=== PATIENT | female | born 1995 | race Caucasian/White ===

== ENCOUNTER 2020-05-13 14:56 | Outpatient (CLI) | payer OTHER, SELFPAY ==
[2020-05-13 15:28] LABS: Basophils Absolute Auto 0.1 K/mm3 (0.0-0.1); Basophils Percent Auto 0.7 % (0.2-1.2); Eosinophils Absolute Auto 0.1 K/mm3 (0-0.3); Eosinophils Percent Auto 1.4 % (0-4.4); Hemoglobin 11.7 g/dL (12.0-15.0); Immature Granulocyte Absolute 0.18 K/mm3 (0.00-0.031); Lymphocytes Absolute Auto 1.63 K/mm3 (0.9-3.2); Lymphocytes Percent Auto 18.1 % (18.3-44.2); Mean Corpuscular HGB Conc 33.4 g/dl (32-36); Mean Corpuscular Hemoglobin 30.5 pg (26-34); Mean Corpuscular Volume 91.1 fl (80-100); Mean Platelet Volume 10.7 fl (7.4-10.4); Monocytes Absolute Auto 0.7 K/mm3 (0.1-0.6); Monocytes Percent Auto 7.8 % (2.6-8.5); Neutrophils Absolute Auto 6.3 K/mm3 (1.3-6.7); Platelet Count Result 195 k/mm3 (150-375); Red Blood Count 3.84 M/mm3 (4.2-5.4); Red Cell Distribution Width 13.8 % (11.5-14.5)
[2020-05-13 16:56] LABS: HIV 1/2 Ab P24 Ag Result Negative (Negative)
[2020-05-14 07:13] LABS: Rapid Plasma Reagin Non-Reactive (NonReactive)
== END 2020-05-13 14:57 | disposition home or self-care (01) ==
PROVIDERS: PCP Family Medicine; Visit Provider Student in an Organized Health Care Education/Training Program
DX: Z34.03 Encounter for supervision of normal first pregnancy, third trimester (principal)
CPT/HCPCS: 36415; 85025; 86592; 86703; G0432

== ENCOUNTER 2020-05-15 09:25 | Inpatient (IN) | payer OTHER, SELFPAY ==
[2020-05-15] VITALS (98 sets, daily range): BP systolic 77–129; BP diastolic 47–99; PULSE 67–111; RESP 16; TEMP 36.6–36.9; O2SAT 96–100; BMI 35.2
[2020-05-15] MEDS: OXYTOCIN 30 UNITS/NS 500 ML 30 UNITS/500 ML BAG 6 UNITS IV CONT (10:41)
[2020-05-15] MEDS: LACTATED RINGERS 1,000 ML 125 ML IV CONT (10:42)
[2020-05-15] MEDS: AMPICILLIN 2 GM/NS 100 ML 2 GM/100 ML BAG IVPB (10:42)
[2020-05-15 10:55] LABS: Basophils Percent Auto 0.4 % (0.2-1.2); Eosinophils Absolute Auto 0.1 K/mm3 (0-0.3); Eosinophils Percent Auto 1.3 % (0-4.4); Hematocrit 33.8 % (37.0-47.0); Hemoglobin 11.3 g/dL (12.0-15.0); Immature Granulocyte Absolute 0.14 K/mm3 (0.00-0.031); Immature Granulocyte Percent A 1.6 % (0-0.5); Lymphocytes Absolute Auto 1.34 K/mm3 (0.9-3.2); Mean Corpuscular HGB Conc 33.4 g/dl (32-36); Mean Corpuscular Hemoglobin 29.9 pg (26-34); Mean Corpuscular Volume 89.4 fl (80-100); Mean Platelet Volume 10.9 fl (7.4-10.4); Monocytes Absolute Auto 0.8 K/mm3 (0.1-0.6); Monocytes Percent Auto 8.6 % (2.6-8.5); Neutrophils Absolute Auto 6.5 K/mm3 (1.3-6.7); Neutrophils Percent Auto 73.1 % (45.5-73.1); Platelet Count Result 181 k/mm3 (150-375); Red Blood Count 3.78 M/mm3 (4.2-5.4); Red Cell Distribution Width 13.6 % (11.5-14.5); White Blood Count 8.9 K/mm3 (4.5-10.0)
--- NOTE | 2020-05-15 11:18 | LDADM ---
This patient, Alexa Perez, was admitted to Labor/Delivery/Recovery 106 on 05/15/20 at 09:25. Plans for labor, pain management and were discussed with patient. Patient oriented to hospital policies and general routines including ID bracelet, bed and alarms, visiting hours, pain management, procedures, bathroom and other care routines, personal items, smoking policy, room service/diet and guest tray routines, security routines, call light, and visiting hours. Patient is encouraged to report perceived risks to care and to ask questions if she does not understand what she is told or what she should do. See OBIX for further documentation.
--- NOTE | 2020-05-15 13:58 | P.PNAN_ITS ---
Anes - Eval Pre Procedure Procedure: Labor Epidural Date/Time: 05/15/20 13:58 Pre Op Diagnosis: leaking Patient Data Age: 24 Gender: F Height: 1.68 m Weight: 99 kg Last Vital Signs Pulse 82 05/15/20 13:30 BP 111/62 05/15/20 13:30 Allergies Allergy/AdvReac Type Severity Reaction Status Date / Time No Known Allergies Allergy Verified 04/10/20 14:37 Home Medications Medication Instructions Recorded Confirmed Type docosahexaenoic acid 200 mg capsule mg PO 10/23/19 History cholecalciferol (vitamin D3) 25 25 mcg PO DAILY 12/20/19 History mcg (1,000 unit) capsule Laboratory Tests 05/15/20 05/15/20 05/15/20 10:49 10:49 10:49 WBC 8.9 K/mm3 K/mm3 (4.5-10.0) RBC 3.78 M/mm3 L M/mm3 (4.2-5.4) Hgb 11.3 g/dL L g/dL (12.0-15.0) Hct 33.8 % L % (37.0-47.0) MCV 89.4 fl fl (80-100) MCH 29.9 pg pg (26-34) MCHC 33.4 g/dl g/dl (32-36) RDW 13.6 % % (11.5-14.5) Plt Count 181 k/mm3 k/mm3 (150-375) MPV 10.9 fl H fl (7.4-10.4) Immature Gran % (Auto) 1.6 % H % (0-0.5) Neut % (Auto) 73.1 % % (45.5-73.1) Lymph % (Auto) 15.0 % L % (18.3-44.2) [place] % (Auto) 8.6 % H % (2.6-8.5) Eos % (Auto) 1.3 % % (0-4.4) Baso % (Auto) 0.4 % % (0.2-1.2) Lymph # (Auto) 1.34 K/mm3 K/mm3 (0.9-3.2) [place] # (Auto) 0.8 K/mm3 H K/mm3 (0.1-0.6) Eos # (Auto) 0.1 K/mm3 K/mm3 (0-0.3) Baso # (Auto) 0.0 K/mm3 K/mm3 (0.0-0.1) Abs Immat Gran (auto) 0.14 K/mm3 H K/mm3 (0.00-0.031) Absolute Neuts (auto) 6.5 K/mm3 K/mm3 (1.3-6.7) Absolute Nucleated RBC 0.0 K/mm3 K/mm3 (0.0-0.012) Nucleated RBC % 0.0 % % (0.0-0.2) RPR Pending Blood Type B Positive Antibody Screen Negative Patient hx anesthesia problems: none Family hx anesthesia problems: none PMFSH Family History Family History Grandparent Family history of malignant neoplasm of breast in first degree relative Social History Social History Smoking status: Never smoker Second hand tobacco smoke exposure: No Alcohol intake: current Substance use: never Gender identity (if verbalized by the patient): Female Spiritual care concerns: No Exam Day of Procedure 05/15/20 13:58 Patient weight: normal Heart: regular rate and rhythm Lungs: normal air movement Airway: Mallampati scale class II Neurological: alert and oriented
[2020-05-15 14:26] LABS: Rapid Plasma Reagin Non-Reactive (NonReactive)
[2020-05-15] MEDS: AMPICILLIN 1 GM/NS 50 ML 1 GM/50 ML BAG IVPB ×2 (14:33→18:39)
--- NOTE | 2020-05-15 14:43 | PM.IMHP ---
H&P: HPI History of Present Illness Chief complaint: leaking Narrative: Alexa Perez is a 24 year old female LMP 08/29/19 currently 37w1d with ELIZABETH 06/04/20 who presented to L&D with complaint of leakage of fluid. Pt reports steady trickle of fluid this morning as well as onset of sharp pain, possible contractions. She denies any vaginal bleeding and reports good movement. Upon arrival to L&D, patient was noted to be grossly ruptured. Decision made to admit pt to L&D. Review of Systems Review of Systems: All systems reviewed & are unremarkable except as noted in HPI and below Constitutional: Constitutional: Reports as per HPI, Reports no additional constitutional complaints, Denies chills, Denies fever(s), Denies headache(s) and Denies night sweats Eyes: Eyes: Reports as per HPI and Reports no additional eye complaints ENT: Reports system reviewed and no additional complaints, except as documented, Reports as per HPI, Reports Normal hearing present and Denies headache(s) Cardiovascular: Cardiovascular: Reports as per HPI, Reports no additional cardiovascular complaints, Denies chest pain and Denies dyspnea Respiratory: Respiratory: Reports as per HPI, Reports no additional respiratory complaints, Denies cough and Denies dyspnea Gastrointestinal: Gastrointestinal: Reports as per HPI, Reports no additional gastrointestinal complaints, Denies abdominal pain, Denies change in bowel habits, Denies change in stool character, Denies nausea and Denies vomiting Genitourinary: Genitourinary: Reports no additional female genitourinary complaints, Reports as per HPI, Denies abnormal vaginal bleeding, Denies genital lesions, Denies hot flashes, Denies dyspareunia, Denies pelvic pain, Denies sexual dysfunction, Denies urinary incontinence, Denies vaginal discharge, Denies vaginal dryness and Denies vaginal odor Musculoskeletal: Musculoskeletal: Reports no additional musculoskeletal complaints and Reports as per HPI Integumentary/Breasts: Skin/Breast: Reports system reviewed and no additional complaints, except as docu, Reports as per HPI, Denies breast pain and Denies nipple discharge Neurologic: Reports system reviewed and no additional complaints, except as documented, Reports as per HPI, Reports Normal hearing present and Denies headache(s) Psychiatric: Psychiatric: Reports no additional psychiatric complaints, Reports as per HPI, Denies anxiety and Denies depression Endocrine: Endocrine: Reports no additional endocrine complaints and Reports as per HPI Hematologic/Lymphatic: Hematologic/Lymphatic: Reports no additional hematologic/lymphatic complaints and Reports as per HPI Allergic/Immunologic: Allergic/Immunologic: Reports no additional allergic/immunologic complaints and Reports as per HPI [facility] Family History Family History Grandparent Family history of malignant neoplasm of breast in first degree relative Social History Social History Smoking status: Never smoker Second hand tobacco smoke exposure: No Alcohol intake: current Substance use: never Gender identity (if verbalized by the patient): Female Spiritual care concerns: No Meds Home Medications and Allergies Home Medications Medication Instructions Recorded Confirmed Type docosahexaenoic acid 200 mg capsule mg PO 10/23/19 History cholecalciferol (vitamin D3) 25 25 mcg PO DAILY 12/20/19 History mcg (1,000 unit) capsule Allergies Allergy/AdvReac Type Severity Reaction Status Date / Time No Known Allergies Allergy Verified 04/10/20 14:37 Vital Signs Vital Signs - 24 hr 05/15/20 10:00 05/15/20 10:15 05/15/20 10:31 Temperature Pulse Rate 90 93 91 Blood Pressure 115/80 116/84 77/54 L 05/15/20 10:45 05/15/20 11:00 05/15/20 11:15 Temperature 36.7 C Pulse Rate 83 83 83 Blood Pressure 99/68 L 114/67 113/70
[2020-05-15] MEDS: OXYTOCIN 30 UNITS/NS 500 ML 30 UNITS/500 ML BAG 125 UNITS IV CONT (21:29)
--- NOTE | 2020-05-15 21:29 | PM.OBPRVD ---
OB - Delivery Note Procedure Delivery date: 05/15/20 Procedure: The patient is a 24-year-old now G1 P 1001 who presented to labor and delivery on 05/15/2020 with complaints of leakage of fluid. Patient was noted to be grossly ruptured upon presentation to labor and delivery and was admitted. SROM occurred at 3:00 a.m. Initial cervical exam was 3/70/-3. Patient was not in labor at time presentation and decision made to begin induction of labor with Pitocin. Pitocin was started and slowly titrated throughout the morning and afternoon. Patient began making cervical change. She became increasingly uncomfortable and requested an epidural for pain management which was placed without difficulty. Patient continued to make progress and was noted to be fully dilated at 8:10 p.m. Patient was encouraged to push and found to be pushing well. She was prepped and draped for delivery. At 9:01 p.m., patient delivered head in JACKLYN presentation. A compound presentation was noted as an infant hand delivered alongside 's face. Occiput restituted to maternal right side. Infant head was delivered atraumatically without difficulty. With subsequent push, the 's neck, shoulders, and rest of body were also delivered without difficulty. 's nose and mouth were suctioned with bulb suction and the was placed on maternal abdomen. Care was assumed by awaiting nursing staff. Delayed cord clamping was performed for approximately 45 seconds. The cord was clamped and cut. A segment of cord was collected for cord gases. Cord blood was collected. The placenta was delivered spontaneously and intact. Uterine fundus was noted to be firm with massage. On inspection, bilateral labial lacerations were noted along with a superficial perineal laceration. These lacerations were repaired with 2-0 and 3-0 Vicryl in the usual fashion. Estimated blood loss for entire delivery was 256 cc. The infant was a live-born male infant, weighing 7 lb 5 oz, Apgars 9 and 9. Both mother and baby doing well and delivery. Of note, GBS status at time of admission was unknown and patient received 3 doses of antibiotics for GBS prophylaxis. events: Labor Induction and Premature Rupture of Membrane Induction method: per pitocin protocol Delivery monitor: external FHT Route of delivery: Laceration description: Labial (bilateral) Delivery repair: vicryl Specimen: Yes (cord blood and cord gases) Estimated blood loss (mL): 256 Anesthesia type: Epidural Disposition: floor Complications: No immediate complications Baby Date of : 05/15/20 Time of : 21:01 Weeks of gestation at delivery: 37 Infant gender: Male Weight (pounds): 7 Weight (ounces): 5 presentation: vertex position: Right Occiput Anterior Placenta delivery description: Spontaneous cord vessel description: 3 Vessels score one minute: 9 score five minutes: 9
[2020-05-15] MEDS: BENZOCAINE 20% AER SPR (*SP) 56 GM CAN 1 SPRAY TOPICAL (23:22)
[2020-05-15] MEDS: WITCH HAZEL 40 PADS 1 PAD TOPICAL (23:22)
[2020-05-16 05:59] LABS: Hematocrit 32.3 % (37.0-47.0); Hemoglobin 10.6 g/dL (12.0-15.0)
[2020-05-16 08:45] VITALS: BP 116/69; PULSE 86; RESP 18; TEMP 36.9; O2SAT 100
--- NOTE | 2020-05-16 09:01 | WPDANLDPN2 ---
Anes-Prog Note L&D Date/Time: 05/16/20 09:01 Comfortable throughout: labor and delivery Neuraxial method: epidural Epidural/Spinal procedure site: clean & non-tender Neuro status: Neuro function grossly intact. Cardiovascular status: normal Respiratory status: normal Airway patency: baseline Mental status: baseline Post-Op hydration status: normal Vital Signs: Last Vital Signs Temp 36.8 C 05/15/20 23:45 Pulse 79 05/15/20 23:45 Resp 16 05/15/20 23:45 BP 91/47 L 05/15/20 23:45 Pulse Ox 100 05/15/20 20:39 I/O: Intake & Output 05/15/20 05/16/20 05/16/20 23:59 07:59 15:59 Intake Total 1800 Output Total 98 Balance 1702 Post-procedural complaints: none Patient feedback: Patient satisfied with anesthetic care.
[2020-05-16] MEDS: IBUPROFEN 600 MG TABLET PO ×3 (09:21→22:25)
[2020-05-16] MEDS: DOCUSATE SODIUM 100 MG CAPSULE PO ×2 (09:21→15:41)
[2020-05-16] MEDS: MULTIVIT/MIN/PREN/FOL AC/IRON TABLET 1 TAB PO (09:21)
--- NOTE | 2020-05-16 12:18 | PM.OBPNVD ---
OB - PN: Subj Subjective Date/time seen: 05/16/20 12:18 Late entry. Pt seen at 8:15 a.m. Doing well. Reports mild vaginal soreness, alleviated with medication. Otherwise, denies any heavy vaginal bleeding. Ambulating and voiding without difficulty. OB - PN: Obj Data Labs CBC & Chem 7: 05/16/20 05:20 Labs: Laboratory Results - last 24 hr 05/15/20 05/15/20 05/16/20 10:49 10:49 05:20 Hgb 10.6 L Hct 32.3 L RPR Non-reactive Blood Type B Positive Antibody Screen Negative OB - PN A/P Assessment and Plan (1) Normal spontaneous vaginal delivery: Code(s): O80 - Encounter for full-term uncomplicated delivery Status: Acute Assessment and Plan: PPD#1 doing well continue routine care anticipate dc home tomorrow Time Spent With Patient Time: Total time spent is greater than 50% in coordination of care (as documented) at patient's floor/unit and/or counseling patient: Exam Const: General: comfortable and no acute distress GI: GI Palp: Yes Soft to palpation and No Tenderness to palpation present (GI) Other: fundus below umbilicus Extrem: Right lower extremity: no edema Left lower extremity: no edema Other: no calf tenderness
[2020-05-16] MEDS: BENZOCAINE 20% AER SPR (*SP) 56 GM CAN 1 SPRAY TOPICAL (15:40)
[2020-05-16] MEDS: WITCH HAZEL 40 PADS 1 PAD TOPICAL (15:40)
--- NOTE | 2020-05-16 15:55 | PC.NURSE ---
Mother called out for assist with feeding. Mother reports using the nipple shield for all feedings. Mother states most feedings will latch and has a few good draws and stop nursing and fall asleep. Mother will wake and get infant to suckle a few times. has had one feeding with a consistent suck for several minutes. Discussed nipple shield precautions and possible complications. Instructions given on application and cleaning of shield. Patient able to return demonstration on proper application of shield. Discussed the need to initiate pumping if continues to nurse with the shield. Patient verbalizes understanding. Reviewed feeding cues, frequencies, duration of feedings, feeding elimination flow sheet, and signs of adequate intake. Demonstrated stimulation techniques to wake for feeding. Several minutes to wake infant. Assisted with to breast. Reviewed positioning/alignment in cross cradle, holding breast in U hold and guided asymmetrical latch on. keeps tongue curled up and makes for difficult latch. Infant was able to latch correctly. has a few sucks within the 10-15 minute attempt. Mother reports this is typical of most infant feeding. Reviewed signs of a correct latch, the difference of effective nursing and ineffective feeding, suck swallow ratio. Nipple care reviewed. Instructed mother to call out for RN assistance if she is unable to latch for feeding or she has discomfort with nursing. Instructed feeding should be initiated three hours from start of last feeding or if feeding cues are noted before. Mother voiced understanding of information shared. Feeding options discussed, mother would like infant to be supplemented at this time. Mother instructed on paced feeding.
--- NOTE | 2020-05-16 16:30 | PC.NURSE ---
Mother wishes to use her home pump. Instructions given on breast pump care and usage, pumping schedule, nipple care, and collection and storage of breast milk. Encouraged [id number], breast massage and manual expression to stimulate supply. Assessed patient for correct flange size, placement and draw. Patient verbalizes and demonstrates understanding of instructions.
[2020-05-16 19:20] VITALS: BP 114/65; PULSE 88; RESP 16; TEMP 36.8
[2020-05-17] MEDS: IBUPROFEN 600 MG TABLET PO (05:45)
[2020-05-17 07:38] VITALS: BP 100/61; PULSE 67; RESP 16; TEMP 36.5
--- NOTE | 2020-05-17 09:32 | PM.OBPNVD ---
OB - PN: Subj Subjective Date/time seen: 05/17/20 09:32 Patient doing well. Reports mild vaginal soreness, alleviated with medication. Denies any headache, chest pain, SOB, N/V. Ambulating and voiding well. Denies heavy lochia. OB - PN: Obj Data Labs CBC & Chem 7: 05/16/20 05:20 OB - PN A/P Assessment and Plan (1) Normal spontaneous vaginal delivery: Code(s): O80 - Encounter for full-term uncomplicated delivery Status: Acute Assessment and Plan: doing well dc home in stable condition emergency precautions reviewed f/u in office in 4-6 weeks for visit Time Spent With Patient Time: Total time spent is greater than 50% in coordination of care (as documented) at patient's floor/unit and/or counseling patient: Exam Const: General: comfortable and no acute distress GI: GI Palp: Yes Soft to palpation and No Tenderness to palpation present (GI) Other: fundus below umbilicus Extrem: Right lower extremity: no edema Left lower extremity: no edema Other: no calf tenderness
--- NOTE | 2020-05-17 09:34 | PM.OBDSVD ---
DS: Admitting Diagnosis Admitting Diagnosis Admitting Diagnosis: Premature rupture of membranes, unspecified as to length of time between rupture and onset of labor, unspecified weeks of gestation OB - DS: Summary OB Procedures : None OB Procedures Intrapartum: Spontaneous Vag Delivery OB Procedures: : None Time Spent with Patient Time attestation: Total time spent providing and/or coordinating discharge services: Discharge Plan Discharge Attending physician on discharge: Alexa Langley Discharging Clinician: Alexa Langley Anticipated Discharge Date/Time: 05/17/20 09:34 Patient Disposition: Home, Self-Care Activity: as tolerated and pelvic rest Diet: regular Discharge Instructions: Call office ([phone]) to schedule a visit in 4-6 weeks. You may take Ibuprofen 600mg every 6 hours as needed for pain. Pain medication may make you constipated. It may be helpful to take an [id number] stool softener, such as Colace and/or Senokot, along with the pain medication to help lessen constipation. Call office or go to ED for pain not controlled with medication, headache, chest pain, shortness of breath, fever, chills, persistent nausea or vomiting, severe abdominal pain, heavy vaginal bleeding >2 pads/hour, foul vaginal discharge or odor, or problems with your breasts. Patient Instructions: Antibiotic Form Stand Alone Forms: General Discharge Information Follow-up/Referrals: Alexa Langley MD [Physician] - (4-6 weeks) Discharge Medications: Continued 28-800 mg-mcg Tablet See Rx Instructions .ROUTE .COMPLEX RF: 0 Discontinued cholecalciferol (vitamin D3) 25 mcg (1,000 unit) capsule 25 mcg PO DAILY RF: 0 Date of admission: 05/15/20 09:25 Primary Care Provider: Chao Wilcox Admitting Provider: Alexa Langley Attending physician on admission: Alexa Langley Condition: Stable
[2020-05-17] MEDS: TETANUS,DIPHTHERIA,AC PERTUSSIS ADULT (0.5 ML) BOOSTRIX IM (11:24)
[2020-05-17] MEDS: DOCUSATE SODIUM 100 MG CAPSULE PO (11:24)
[2020-05-17] MEDS: MULTIVIT/MIN/PREN/FOL AC/IRON TABLET 1 TAB PO (11:24)
[2020-05-19 09:28] VITALS: BP 137/72; PULSE 92; RESP 20; TEMP 36.8; O2SAT 100
== END 2020-05-17 15:16 | disposition home or self-care (01) | DRG 807 ==
LOC: ANHLDR 09:56 → ANHOB2 23:42
PROVIDERS: Admitting Provider Student in an Organized Health Care Education/Training Program; PCP Family Medicine; Visit Provider Student in an Organized Health Care Education/Training Program
DX: O42.12 Full-term premature rupture of membranes, onset of labor more than 24 hours following rupture (principal); Z37.0 Single live birth; O70.0 First degree perineal laceration during delivery; O32.6XX0 Maternal care for compound presentation, not applicable or unspecified; O99.824 Streptococcus B carrier state complicating childbirth; Z3A.37 37 weeks gestation of pregnancy
CPT/HCPCS: 36415; 84112; 85014; 85018; 85025; 86592; 86850; 86900; 86901; 90715; A9270; J0290; J2590; J2795; J7120

== ENCOUNTER 2020-08-29 10:22 | Outpatient (NON) | payer OTHER, SELFPAY ==
[2020-08-29 22:30] LABS: SARS-CoV-2 RNA PCR Negative
== END 2020-08-29 10:23 ==
LOC: ANHCOVIDDT 10:24
PROVIDERS: PCP Family Medicine; Visit Provider Family Medicine
DX: Z20.828 Contact with and (suspected) exposure to other viral communicable diseases (principal); J02.9 Acute pharyngitis, unspecified
CPT/HCPCS: 87635; C9803; U0003

== ENCOUNTER 2022-07-15 12:27 | Outpatient (CLI) | payer OTHER, SELFPAY ==
--- NOTE | ~2022-07-15 | US_ITS ---
EXAMINATION: US OB <=14 wk fetus w TV DATE: 07/15/2022 13:25 INDICATION: with inconclusive viability during first trimester. TECHNIQUE: Real-time pelvic ultrasound utilizing both a transvaginal and transabdominal probe was pe rformed. The interpreting radiologist was not present for the study. COMPARISON: None. FINDINGS: The uterus measures 2.3 x 5.6 x 7.8 cm. There is an intrauterine gestational sac. A yolk sac and sin gle living fetus is identified within the gestational sac. The crown rump length measures 3.2 cm, whi ch correlates with an estimated gestational age of 10 weeks and 1 days. heart motion is identif ied measuring 170 beats per minute (bpm) by M-mode Doppler. 1.7 x 1.0 cm anechoic subchorionic hemato ma along the caudal margin of the gestational sac. The right ovary measures 3.5 x 2.3 x 2.5 cm. Vascular flow with arterial waveforms identified within the right ovary. The left ovary is not visualized. There is no free fluid in the pelvis. IMPRESSION: 1. Single living fetus with heart rate of 170 bpm. 2. Gestational age by ultrasound of 10 weeks 1 day(s) +/- 6 day(s) with ultrasound estimated date of delivery (ELIZABETH) of 02/09/2023. Reviewed, dictated and finalized at location A. IMPRESSION: 1. Single living fetus with heart rate of 170 bpm. 2. Gestational age by ultrasound of 10 weeks 1 day(s) +/- 6 day(s) with ultras ound estimated date of delivery (ELIZABETH) of 02/09/2023.
== END 2022-07-15 12:28 | disposition home or self-care (01) ==
LOC: ANHIMG 12:34
PROVIDERS: PCP Family Medicine; Visit Provider Student in an Organized Health Care Education/Training Program
DX: O36.80X0 Pregnancy with inconclusive fetal viability, not applicable or unspecified (principal); Z3A.10 10 weeks gestation of pregnancy
CPT/HCPCS: 76801; 76817

== ENCOUNTER 2023-01-25 06:27 | Outpatient (CLI) | payer OTHER, SELFPAY ==
[2023-01-25] VITALS (98 sets, daily range): BP systolic 52–126; BP diastolic 27–91; PULSE 54–144; O2SAT 81–100; BMI 37.3
[2023-01-25] MEDS: LACTATED RINGERS 1,000 ML 999 ML IV CONT (07:15)
[2023-01-25] MEDS: LACTATED RINGERS 1,000 ML 125 ML IV CONT ×2 (07:52→08:49)
[2023-01-25] MEDS: TERBUTALINE SULFATE 1 MG/ML VIAL 0.25 MG SUB-Q (08:12)
== END 2023-01-25 11:49 | disposition home or self-care (01) ==
LOC: ANHOBOP 06:32 → ANHOBPP 06:34 → ANHLDR 12:00
PROVIDERS: Visit Provider Obstetrics & Gynecology
DX: O32.1XX0 Maternal care for breech presentation, not applicable or unspecified (principal); Z3A.00 Weeks of gestation of pregnancy not specified
CPT/HCPCS: 59412; 99199; J2795; J3105; J7120

== ENCOUNTER 2023-02-01 08:26 | Outpatient (CLI) | payer OTHER, SELFPAY ==
[2023-02-01 08:45] LABS: Basophils Percent Auto 0.6 % (0.2-1.2); Eosinophils Absolute Auto 0.1 K/mm3 (0-0.3); Eosinophils Percent Auto 1.4 % (0-4.4); Hematocrit 34.1 % (37.0-47.0); Hemoglobin 11.2 g/dL (12.0-15.0); Immature Granulocyte Absolute 0.22 K/mm3 (0.00-0.031); Immature Granulocyte Percent A 3.1 % (0-0.5); Lymphocytes Absolute Auto 0.95 K/mm3 (0.9-3.2); Lymphocytes Percent Auto 13.3 % (18.3-44.2); Mean Corpuscular HGB Conc 32.8 g/dl (32-36); Mean Corpuscular Hemoglobin 30.8 pg (26-34); Mean Corpuscular Volume 93.7 fl (80-100); Mean Platelet Volume 10.1 fl (7.4-10.4); Monocytes Absolute Auto 0.7 K/mm3 (0.1-0.6); Monocytes Percent Auto 9.8 % (2.6-8.5); Neutrophils Absolute Auto 5.1 K/mm3 (1.3-6.7); Neutrophils Percent Auto 71.8 % (45.5-73.1); Platelet Count Result 173 k/mm3 (150-375); Red Blood Count 3.64 M/mm3 (4.2-5.4); Red Cell Distribution Width 15.5 % (11.5-14.5); White Blood Count 7.2 K/mm3 (4.5-10.0)
[2023-02-01 13:28] LABS: Rapid Plasma Reagin Non-Reactive (NonReactive)
== END 2023-02-01 08:27 | disposition home or self-care (01) ==
PROVIDERS: Visit Provider Obstetrics & Gynecology
DX: Z34.93 Encounter for supervision of normal pregnancy, unspecified, third trimester (principal); Z3A.00 Weeks of gestation of pregnancy not specified
CPT/HCPCS: 36415; 85025; 86592; 86850; 86900; 86901

== ENCOUNTER 2023-02-02 10:06 | Inpatient (IN) | payer OTHER, SELFPAY ==
[2023-02-02] VITALS (44 sets, daily range): BP systolic 102–117; BP diastolic 53–88; PULSE 63–87; RESP 14–18; TEMP 36.3–36.6; O2SAT 97–100; BMI 36.3
--- NOTE | 2023-02-02 03:22 | PM.IMHP ---
H&P: HPI History of Present Illness Date/Time: 02/02/23 03:22 Chief Complaint: Scheduled section Narrative: She is a 39 weeks. Patient with persistant breech presentation. She had an prior attempted ECV which was unsuccessful and has opted for primary section. Ultrasound today confirmed persistant breech presentation. Discussed risk benefits of which she agrees with. The rest of course uncomplicated. She has had contractions. Cervix 3/70/-2 on exam. Review of Systems Review of Systems: All systems reviewed & are unremarkable except as noted in HPI and below Constitutional: Constitutional: Reports no additional constitutional complaints and Denies headache(s) Eyes: Eyes: Denies spots in vision ENT: Reports system reviewed and no additional complaints, except as documented and Denies headache(s) Cardiovascular: Cardiovascular: Denies chest pain and Denies dyspnea Respiratory: Respiratory: Denies dyspnea Gastrointestinal: Gastrointestinal: Reports no additional gastrointestinal complaints Genitourinary: Genitourinary: Reports amenorrhea Musculoskeletal: Musculoskeletal: Reports no additional musculoskeletal complaints Integumentary/Breasts: Skin/Breast: Denies breast mass and Denies rash Neurologic: Denies headache(s) Psychiatric: Psychiatric: Reports no additional psychiatric complaints PMFSH Past Medical History Medical History History of vaginal delivery x 1 Pharyngitis Family History Family History Grandparent Family history of malignant neoplasm of breast in first degree relative Dementia Social History Social History Smoking status: Never smoker Second hand tobacco smoke exposure: Yes Alcohol intake: current Substance use: never Lack of Transportation: No Lack of Food: Never True Current Housing: I Have Housing Concerned About Future Housing: No Difficulty Paying Gas/Electric Bills: No Difficulty Paying for Meds: No Currently Unemployed: No Education: Bachelor's Degree Difficulty w/ Childcare or Family Care: No Gender identity (if verbalized by the patient): Female Spiritual care concerns: No Meds Home Medications and Allergies Home Medications Medication Instructions Recorded Confirmed Type vits 75-iron 28 mg-folic 1 pkg PO DAILY 09/02/22 03/29/23 History acid 800 mcg-omega-3 oral combo pack (One A Day Women's DHA) ferrous sulfate 325 mg (65 mg 325 mg PO DAILY 01/11/23 01/11/23 History iron) tablet,delayed release magnesium 200 mg tablet 400 mg PO DAILY 01/11/23 01/11/23 History Allergies Allergy/AdvReac Type Severity Reaction Status Date / Time No Known Allergies Allergy Verified 01/28/23 10:31 Exam Const: General: no acute distress Eyes: General: appearance normal, both eyes and all related structures Resp: Effort & Inspection: normal respiratory effort Cardio: Rate: regular rate GI: Other: Gravid no fundal tenderness no right upper quadrant pain : Other: cervi x3/70/-2 Skin: General skin exam: no rashes or lesions noted Neuro: Cognition (Neuro): normal cognition Extrem: General: normal to inspection Psych: Mental Status: mental status grossly normal Assessment and Plan Assessment and plan (1) Breech presentation: Code(s): O32.1XX0 - Maternal care for breech presentation, not applicable or unspecified Status: Acute Assessment and Plan: Term Will proceed with primary section.
[2023-02-02] MEDS: LACTATED RINGERS 1,000 ML 125 ML IV CONT ×2 (11:08→12:01)
--- NOTE | 2023-02-02 11:48 | WPDANESEPPF ---
Anes - Initial Pre Proc Eval Procedure: Operation Date: 02/02/23 12:00 Proposed Procedures p Primary Section - Milton Allen MD Date/Time: 02/02/23 11:48 Surgeon: Milton Allen MD Pre Op Diagnosis: C/S Patient Data Age: 27 Gender: F Height: 1.68 m Weight: 102 kg Last Vital Signs Pulse 85 02/02/23 11:01 BP 114/70 02/02/23 11:01 O2 Del Method Room Air 02/02/23 10:39 Allergies Allergy/AdvReac Type Severity Reaction Status Date / Time No Known Allergies Allergy Verified 01/28/23 10:31 Home Medications Medication Instructions Recorded Confirmed Type vits 75-iron 28 mg-folic 1 pkg PO DAILY 07/09/22 02/02/23 History acid 800 mcg-omega-3 oral combo pack (One A Day Women's DHA) ferrous sulfate 325 mg (65 mg 325 mg PO DAILY 01/11/23 01/11/23 History iron) tablet,delayed release magnesium 200 mg tablet 400 mg PO DAILY 01/11/23 01/11/23 History Patient hx anesthesia problems: none Family hx anesthesia problems: none Results Review: All pre-operative results and documents have been reviewed as part of the pre-operative evaluation. [facility] Past Medical History Medical History History of vaginal delivery x 1 Pharyngitis Family History Family History Grandparent Family history of malignant neoplasm of breast in first degree relative Dementia Social History Social History Smoking status: Never smoker Second hand tobacco smoke exposure: Yes Alcohol intake: current Substance use: never Lack of Transportation: No Lack of Food: Never True Current Housing: I Have Housing Concerned About Future Housing: No Difficulty Paying Gas/Electric Bills: No Difficulty Paying for Meds: No Currently Unemployed: No Education: Bachelor's Degree Difficulty w/ Childcare or Family Care: No Gender identity (if verbalized by the patient): Female Spiritual care concerns: No Anes - Eval Final PreProcedure Day of Procedure 02/02/23 11:48 Patient weight: obese Heart: regular rate and rhythm Lungs: clear to auscultation Airway: Mallampati scale class II Neurological: alert and oriented Last oral intake: >/= 8 hours ASA classification: II Emergent: no Anesthetic plan: proceed Anesthesia type and monitoring: regional spinal and standard monitoring Results Review: All pre-operative results and documents have been reviewed as part of the pre-operative evaluation. Informed Consent: The patient's anesthetic plan and its attendant risks and benefits were discussed with the patient/family/POA. Questions were solicited and answers provided to the satisfaction of the patient/family/POA.
--- NOTE | 2023-02-02 12:04 | WPDHPUPDATE1 ---
History and Physical Update Update Date/Time: 02/02/23 12:04 History and Physical has been reviewed, including an updated exam of the patient. There are NO changes in the patient's condition. Risks, benefits, and alternatives have been discussed and questions answered. Patient agrees to proceed with procedure.
[2023-02-02] MEDS: ceFAZolin 2 GM/D5W 50 ML 2 GM/50 ML BAG IVPB (12:11)
[2023-02-02] MEDS: KETOROLAC 30 MG/ML VIAL (*BKC) IV PUSH (13:20)
[2023-02-02] MEDS: OXYTOCIN 30 UNITS/NS 500 ML 30 UNITS/500 ML BAG 125 UNITS IV CONT (14:12)
--- NOTE | 2023-02-02 14:20 | PC.NURSE ---
Last FHT in the OR were 140
--- NOTE | 2023-02-02 15:29 | W.PM.PROC2 ---
Procedure Note - Detailed Date of Procedure 02/02/23 Pre-op Diagnosis Persistent breech presentation Post-op Diagnosis Same Procedure Performed primary low transverse section Surgeon Milton Allen MD Anesthesia Spinal Indications patient with persistent breech presentation breech presentation confirmed on bedside ultrasound today. Findings Female 7 lb 11 oz gera breech presentation normal uterus normal fallopian tubes bilaterally normal ovaries appearing bilateral Description of Procedure After informed consent, risks and benefits of the procedure was discussed with the patient. The patient was taken to the operating room where she was placed in the dorsal lithotomy position with leftward tilt. After the prior placed epidural anesthesia was found to be adequate, she was then prepped and draped in the usual sterile fashion. A Pfannenstiel skin incision was made with a scalpel and carried through to the underlying layer of fascia. The fascia was then nicked in the midline, extending bilaterally. The fascia was dissected off the rectus muscles bluntly and sharply, superiorly and inferiorly. The rectus muscles were in the midline, and peritoneum was identified and entered bluntly. The pelvic organs were visualized. The bladder blade was then inserted. The vesicouterine peritoneum was identified and entered sharply with Metzenbaum scissors and extended bilaterally and then the bladder flap was created digitally. The low transverse uterine incision was then made with the scalpel and extended with bilateral index fingers in a crescent-shaped fashion. the buttocks was visualized the buttocks was then delivered through the incision the leg was flexed and delivered the other leg was flexed and delivered next the arms were flexed and delivered and the head was delivered in a flexed position the infant was vigorously crying upon delivery nose and mouth were suction with the bulb the cord was doubly clamped and cut. The was then handed off to the awaiting pediatric staff. The placenta was then delivered manually. The uterine cavity was sponge curretted. The uterus was then exteriorized. The uterine incision was then closed with 0 vicryl in a running locked fashion. A second layer of 0 vicryl was used in an imbricating fashion for hemostasis. Hemostasis was noted. The uterus was then returned to the abdomen. Posterior cul-de-sac was cleared of clot prior to replacing uterus back into abdomen. Bilateral gutters were cleared off all clots and debris. The uterine incision was inspected. A small area of bleeding was noted near right side of uterus and a figure of eight stitch was used of 0 vicryl and hemostasis noted. Interceed placed on uterine incision and vertically on front of uterus. The muscle bellies were inspected and noted to be hemostatic. The subfascial layer was noted to be hemostatic, peritoneum closed with 3.0 vicryl and the fascia was closed with 0 Vicryl in a running fashion. The subcutaneous layer was irrigated and was then approximated with 3-0 Vicryl in a subcutaneous fashion. The skin was closed with 4.0 vicryl on a [place] needle in a subcuticular fashion. Skin dermabond applied at incision. All instruments, needle, and lap counts were correct x3. The patient was taken to the recovery room in stable condition. Estimated Blood Loss -575.0 Urine Output -200.0 Drains No Packing No Pathology None sent Complications No immediate complications Condition Stable Disposition Floor AM Billing Surgery - Charge Forward: Surgery Billing
--- NOTE | 2023-02-02 15:37 | PC.NURSE ---
Patient transferred to post room #283 via ( stretcher ). Support person present. Oriented to unit, room, information board, rooming in, admission packet and security measures. Patient verbalizes understanding.
[2023-02-02] MEDS: IBUPROFEN 600 MG TABLET PO (16:42)
[2023-02-02] MEDS: DOCUSATE SODIUM 100 MG CAPSULE PO (16:42)
[2023-02-02] MEDS: ACETAMINOPHEN 325 MG TABLET 650 MG PO (20:53)
[2023-02-03] MEDS: IBUPROFEN 600 MG TABLET PO ×3 (01:45→16:45)
[2023-02-03 04:50] VITALS: BP 102/48; PULSE 70; RESP 16; TEMP 36.3
[2023-02-03] MEDS: ACETAMINOPHEN 325 MG TABLET 650 MG PO (05:06)
[2023-02-03 05:43] LABS: Basophils Percent Auto 0.3 % (0.2-1.2); Eosinophils Absolute Auto 0.1 K/mm3 (0-0.3); Eosinophils Percent Auto 0.7 % (0-4.4); Hematocrit 31.3 % (37.0-47.0); Hemoglobin 9.6 g/dL (12.0-15.0); Immature Granulocyte Absolute 0.13 K/mm3 (0.00-0.031); Immature Granulocyte Percent A 1.3 % (0-0.5); Lymphocytes Absolute Auto 1.16 K/mm3 (0.9-3.2); Lymphocytes Percent Auto 11.5 % (18.3-44.2); Mean Corpuscular HGB Conc 30.7 g/dl (32-36); Mean Corpuscular Hemoglobin 29.4 pg (26-34); Mean Corpuscular Volume 95.7 fl (80-100); Monocytes Absolute Auto 0.9 K/mm3 (0.1-0.6); Monocytes Percent Auto 8.5 % (2.6-8.5); Neutrophils Absolute Auto 7.8 K/mm3 (1.3-6.7); Neutrophils Percent Auto 77.7 % (45.5-73.1); Platelet Count Result 166 k/mm3 (150-375); Red Blood Count 3.27 M/mm3 (4.2-5.4); Red Cell Distribution Width 15.6 % (11.5-14.5); White Blood Count 10.1 K/mm3 (4.5-10.0)
[2023-02-03 08:05] VITALS: BP 122/77; PULSE 86; RESP 16; TEMP 36.8; O2SAT 97
--- NOTE | 2023-02-03 08:17 | WPDANLDPN2 ---
Anes-Prog Note L&D Date/Time: 02/03/23 08:17 Comfortable throughout: section Neuraxial method: spinal Epidural/Spinal procedure site: clean & non-tender Neuro status: Neuro function grossly intact. Cardiovascular status: normal Respiratory status: normal Airway patency: baseline Mental status: baseline Post-Op hydration status: normal Vital Signs: Last Vital Signs Temp 36.3 C L 02/03/23 04:50 Pulse 70 02/03/23 04:50 Resp 16 02/03/23 04:50 BP 102/48 L 02/03/23 04:50 Pulse Ox 100 02/02/23 17:20 O2 Del Method Room Air 02/02/23 17:20 Pain score (VAS): 0 I/O: Intake & Output 02/02/23 02/03/23 02/03/23 23:59 07:59 15:59 Intake Total 1600 1800 Output Total 1200 3000 Balance 400 -1200 Post-procedural complaints: none Patient feedback: Patient satisfied with anesthetic care.
--- NOTE | 2023-02-03 08:17 | WPDANLDNPN2 ---
Anes-Prog Note L&D-Neuraxial Date/Time: 02/03/23 08:17 Neuraxial medications: intrathecal PF morphine Opiod-related complaints: none Patient feedback: Patient satisfied with post-operative pain management.
[2023-02-03 09:00] VITALS: PULSE 86; RESP 16; O2SAT 97
[2023-02-03] MEDS: MULTIVIT/MIN/PREN/FOL AC/IRON TABLET 1 TAB PO (09:00)
[2023-02-03] MEDS: DOCUSATE SODIUM 100 MG CAPSULE PO ×2 (09:00→16:45)
[2023-02-03] MEDS: POLYSACCHARIDE IRON COMPLEX 150 MG CAPSULE PO ×2 (09:00→16:45)
[2023-02-03 12:16] VITALS: BP 106/65; PULSE 76; RESP 16; TEMP 36.6; O2SAT 98
[2023-02-03] MEDS: ACETAMINOPHEN 500 MG TABLET 1000 MG PO ×2 (13:00→20:36)
[2023-02-03 16:00] VITALS: BP 120/68; PULSE 89; RESP 16; TEMP 36.7; O2SAT 100; O2SAT 98
--- NOTE | 2023-02-03 16:13 | PC.NURSE ---
[id number] Introductions were made, then consulted with patient to assess needs related to . Mother led the conversation with her?plans to feed?her infant and the?experience so far. Resources provided for inpatient and outpatient services with the feeding sheet, mom/baby guide, business card and name written on the white board. Mother voiced understanding of information and consents for assistance. Mother works well with her with encouragement and education. Encouraged understanding of the benefits of skin to skin (demonstrating unwrapping infant and placing upright on her chest), stimulating with massage touch, changing positions to encourage wakefulness, how to watch for early feeding cues, hand expression, responsive feeding, feeding on demand (aiming for 8-12 times in 24 hours, about every 2-3 hours), milk production, building/maintaining a milk supply, duration of feeding, signs of adequate intake/output and how to record on the feeding sheet. Reviewed positioning and ear, shoulder, hip alignment, supporting the breast to facilitate a deep latch, asymmetrical latch (off-center), leading with the chin with a big, open, wide gape and body close to mother. Infant latched optimally to the right and left breast with a maintained latch for 5 minutes on one side and sleepy and reluctant on the other side. Education given to mother of how to visualize suck/swallow ratios and listen for drinking at the breast. was able to maintain latch without discomfort to mother. Nipple care reviewed with optimal latch and good positioning. Reviewed good handwashing when or touching the breast/nipples to prevent infection. Resources used to facilitate learning were used with the tool, mom and baby guide. Mother voiced understanding of skin to skin, stimulating with massage touch, responsive feedings, hand expressed colostrum, talking to infant to encourage if it has been 2 -2.5 hours since the start of the last , to call if infant does not latch, or if there is discomfort with . Resources provided for inpatient/outpatient with business card, feeding sheet, name on the white board and the mom/baby guide. Mother voiced understanding of information, demonstrated learning and will call if there is a request for assistance. Maternal mother is helpful and supportive. [phone] Purposefully rounded to assess how has been going today. was just brought back to mother swaddled with a hat bow demonstrating open mouth and seeking behaviors. Mother states she is willing to have the RN assist with a latch to assess for effective feeding. optimally latched to the right breast with mother using cross cradle and the u-hold to support the breast. Good rocking jaw motion with appropriate suck/swallow were visualized and mother denies pain with the effective . Mother was encouraged to call for assistance as needed throughout the night and her mother will be present for support.
[2023-02-03] MEDS: SIMETHICONE 80 MG TAB.CHEW PO (16:45)
[2023-02-03 20:00] VITALS: BP 109/62; PULSE 84; RESP 18; TEMP 36.9; O2SAT 99
[2023-02-04] MEDS: IBUPROFEN 600 MG TABLET PO (00:55)
[2023-02-04] MEDS: ACETAMINOPHEN 500 MG TABLET 1000 MG PO (05:53)
[2023-02-04 08:00] VITALS: PULSE 86; RESP 16; O2SAT 100
[2023-02-04 08:20] VITALS: BP 124/80; PULSE 86; RESP 16; TEMP 36.7; O2SAT 100
[2023-02-04] MEDS: MULTIVIT/MIN/PREN/FOL AC/IRON TABLET 1 TAB PO (08:45)
[2023-02-04] MEDS: POLYSACCHARIDE IRON COMPLEX 150 MG CAPSULE PO (08:45)
[2023-02-04] MEDS: DOCUSATE SODIUM 100 MG CAPSULE PO (08:45)
--- NOTE | 2023-02-04 10:22 | PM.OBPNVD ---
OB - PN: Subj Subjective Date/time seen: 02/03/23 0800 Interval history: She states she feels well, minimal pain. She has ambulated without problems. She has adequate pain control. Positive flatus. Tolerating regular food. Patient comments: pain well controlled [place] baby status: nursing well feeding status: exclusively breast feeding OB - PN: Obj Data Labs 02/03/23 04:56 OB - PN A/P Assessment and Plan (1) Delivery by section: Status: Acute Assessment and Plan: POD 1 s/p primary section. She is doing well. Routine post c/s care. Anticipate discharge tomorrow. Time Spent With Patient Time: Total time spent is greater than 50% in coordination of care (as documented) at patient's floor/unit and/or counseling patient: Exam Const: General: comfortable and no acute distress Resp: Effort & Inspection: normal respiratory effort Psych: Mental Status: mental status grossly normal Affect: normal affect
--- NOTE | 2023-02-04 10:25 | PM.OBDSVD ---
DS: Admitting Diagnosis Discharge Date 02/04/23 Admitting Diagnosis Breech presentation DS: Discharge Diagnosis Discharge Diagnosis (1) Delivery by section: Status: Acute (2) Breech presentation: Code(s): O32.1XX0 - Maternal care for breech presentation, not applicable or unspecified Status: Acute OB - DS: Summary Hospital Course Hospital Course: She was admitted for primary section for persistent breech presentation. She had an uncomplicated primary section. She did well . On post op day one she was ambulating well, tolerating regular diet. She had flatus and had adequate pain control. She was discharged to home on POD 2. Doing well. Discharge precautions discussed. OB Procedures : External version OB Procedures Intrapartum: OB Procedures: : None Peripartum Data Delivery Method: Section Procedures: Procedures Operation Date: 02/02/23 12:00 Actual Procedure Side Surgeon p Primary Section Bilateral Milton Allen MD complications: none Status at Discharge Functional status at discharge: independent ambulation Time Spent with Patient Time attestation: Total time spent providing and/or coordinating discharge services: Exam Const: General: cooperative Orientation/consciousness: oriented to person, oriented to place and oriented to time HENMT: Face/Nose/Sinus: Normal external nose present Eyes: General: appearance normal, both eyes and all related structures Resp: Effort & Inspection: normal respiratory effort GI: Inspection: normal to inspection Other: incision healing well intact mild bruising Skin: General skin exam: normal color Neuro: General: oriented to person, oriented to place and oriented to time Extrem: General: normal to inspection and no calf tenderness Psych: Appearance: grossly normal Mental Status: mental status grossly normal Discharge Plan Discharge Attending physician on discharge: Milton Allen Consulting providers: Anatoly Rouse Discharging Clinician: Milton Allen Anticipated Discharge Date/Time: 02/04/23 10:31 Patient Disposition: Home, Self-Care Activity: no straining and may drive after 2 weeks Diet: regular Discharge Instructions: Education: Mom and Baby Guide Given to: Mother Follow-Up: Call your delivering provider's office for an appointment to be seen in: 1 Week [facility]. Appointment Date/Time: February 05, 2023 at 10:00 am What to expect at your follow-up visit: Blood Pressure Check Physical Assessment Call [phone] if you are unable to keep your appointment time. BREAST CARE: * Wear a snug supportive bra. * For engorgement discomfort: Breast Feeding: * Apply warm moist washcloths * Express milk as needed to relieve engorgement * Wear loose clothing * For sore nipples: * Identify correct latch-on * Apply warm moist washcloths before and after nursing * Air dry nipples after nursing * May apply Lansinoh cream to nipples ABDOMINAL INCISION: (if applicable) * Do NOT use lotions for powders on your incision * When showering, allow soap and water to run over the incision, wash gently *Dry incision gently with a clean dry towel EPISIOTOMY/PERINEAL CARE: * Until bleeding stops, use your servando bottle after urinating * Change your pad frequently throughout the day * You may take sitz baths several times a day (fill your bathtub with warm water and soak for 20 minutes.) Do NOT bathe in the water * No tub baths until seen by your physician - You may shower ACTIVITY: * Rest as much as possible. * Do not exercise or lift anything heavier than your baby (such as laundry or other children.) * Avoid stairs or driving as much as possible for abou
[2023-02-04] MEDS: MEASLES,MUMPS,RUBELLA VACCINE 0.5 ML VIAL SUB-Q (11:48)
--- NOTE | 2023-02-04 15:48 | PC.NURSE ---
[id number] Mother led the conversation with her experience and plan to feed her so far and her ability to independently latch optimally without discomfort. Reminded parents to use good handwashing technique to prevent infection. Mother is feeding appropriately for growth of and understands stimulating to eat if needed. Infant has had appropriate feedings in the last 24 hours meets the outcomes for weight, output and jaundice at this time. Mother states she is confident to continue effectively her infant at home, when to call for assistance and denies any additional assistance or education at this time. Reinforced understanding of milk production, transition of milk, signs of adequate intake, transition of stool, prevention/relief of engorgement, responsive watching for feeding cues, the different methods of stimulating infant to breastfeed 2-3 hours after the start of the last feeding, community resources, and when to call a provider using the resource of the mom and baby guide. Mother voiced understanding of the education shared. Reported to the primary RN.
[2023-02-05 10:28] VITALS: BP 117/74; PULSE 85; RESP 18; TEMP 36.6; O2SAT 99
== END 2023-02-04 12:05 | disposition home or self-care (01) | DRG 788 ==
LOC: ANHOBPP 10:25 → ANHLDR 13:43 → ANHOB2 15:37
PROVIDERS: Admitting Provider Obstetrics & Gynecology; Visit Provider Obstetrics & Gynecology
PROC: 10D00Z1 Extraction of Products of Conception, Low, Open Approach (ICD-10-PCS; CPT 59514; principal; 2023-02-02 12:00)
DX: O32.1XX0 Maternal care for breech presentation, not applicable or unspecified (principal); Z3A.39 39 weeks gestation of pregnancy; Z37.0 Single live birth
CPT/HCPCS: 36415; 85025; 86592; 86850; 86900; 86901; 90710; A9270; J0131; J0690; J1885; J2274; J2370; J2405; J2590; J7120